=== PATIENT | male | born 1990 | race Caucasian/White ===

== ENCOUNTER 2016-12-14 17:57 | Emergency (ER) | payer BC ==
[~2016-12-14] VITALS: Ht 190.5 cm; Wt 115.0 kg
[~2016-12-14 17:57] MED LIST: GEMF600T PO; OXYC1SOL5 PO; PROT40TA PO; ZOFR4TAB3 SL
[2016-12-14 18:10] VITALS: BP 154/92; PULSE 67; RESP 16; TEMP 98.8; O2SAT 98
[2016-12-14 18:30] LABS: BLOOD, URINE NEG (NEG); GLUCOSE,URINE NEG (NEG); KETONE, URINE NEG (NEG); NITRITE,URINE NEG (NEG)
[2016-12-14 18:48] LABS: URINE COLOR YELLOW (YELLW/STRAW)
[2016-12-14 18:51] LABS: COMMENT (UR) CULT NOT INDICATED; CULTURE IF INDICATED CULT NOT INDICATED; SQUAMOUS EPITHELIAL CELL URINE 0-5 /hpf (0-5); WBC, URINE 0-2 /hpf (0-5)
--- NOTE | 2016-12-14 19:47 | PD ---
HPI Chief Complaint: Flank/Kidney Pain Time Seen by Provider: 19:33 Travel History International Travel<30 days: No Contact w/Intl Traveler<30days: No Traveled to known affect area: No History of Present Illness HPI The patient is a 26-year-old male that complains of left flank pain radiating to the abdomen for about 4 hours. He does have nausea without vomiting. He denies any fever. He denies any history of kidney stones. He has a history of pancreatitis and this feels similar to that pain but this is the first time he has had dizziness. He denies any dysuria, frequency or urgency. The pain is 8/ 10 and sharp and stabbing. The patient's pancreatitis was from gallbladder problems and he states after his cholecystectomy has not had any problems with this. His last drink of alcohol was 3 days ago. He denies any melanotic or bloody stools. 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 PFSH Past Medical History Cancer: No Cardiovascular Problems: No Diminished Hearing: No Endocrine: No Gastrointestinal Disorders: Yes (COLITIS) GERD: Yes Genitourinary: No Immune Disorder: No Neurologic: No Reproductive: No Respiratory: No Immunizations Current: No Pancreatitis: Yes Tetanus Vaccination: < 5 Years Influenza Vaccination: Yes Past Surgical History Cholecystectomy: Yes Other Surgery: Yes (JEUJOSTOMY) Social History Alcohol Use: Yes (OCCASIONAL) Tobacco Use: Yes (CHEW) Substance Use: No Allergies-Medications (Allergen,Severity, Reaction): Coded Allergies: No Known Allergies (Unverified , 12/14/16) Reported Meds & Prescriptions Reported Meds & Active Scripts Active Reported Omeprazole 40 Mg Cap 40 Mg PO DAILY Review of Systems Except as stated in HPI: all other systems reviewed are Neg Physical Exam Narrative GENERAL: The patient is alert, oriented 3 in moderate apparent distress with his left flank pain. His vital signs show blood pressure 154/92 but are otherwise normal. SKIN: Warm and dry. No skin rash is seen. HEAD: Atraumatic. Normocephalic. EYES: Pupils equal and round. No scleral icterus. No injection or drainage. ENT: No nasal bleeding or discharge. Mucous membranes pink and moist. NECK: Trachea midline. No JVD. CARDIOVASCULAR: Regular rate and rhythm. No murmur appreciated. RESPIRATORY: No accessory muscle use. Clear to auscultation. Breath sounds equal bilaterally. GASTROINTESTINAL: Abdomen soft, with minimal tenderness on the left over quadrant and tenderness to percussion in the left flank, nondistended. Hepatic and splenic margins not palpable. No guarding or rebound is present. MUSCULOSKELETAL: No obvious deformities. No clubbing. No cyanosis. No edema. NEUROLOGICAL: Awake and alert. No obvious cranial nerve deficits. Motor grossly within normal limits. Normal speech. PSYCHIATRIC: Appropriate mood and affect; insight and judgment normal. Data Data Last Documented VS Vital Signs Date Time Temp Pulse Resp B/P Pulse Ox O2 Delivery O2 Flow Rate FiO2 12/14/16 20:59 18 12/14/16 20:50 98 Room Air 12/14/16 20:50 59 171/77 12/14/16 18:10 98.8 Orders Urinalysis - C+S If Indicated (12/14/16 18:13) Complete Blood Count With Diff (12/14/16 19:47) Comprehensive Metabolic Panel (12/14/16 19:47) Lipase (12/14/16 19:47) Ct Abd/Pel W Iv Contrast(Rout) (12/14/16 19:47) Iv Access Insert/Monitor (12/14/16 19:47) Ecg Monitoring (12/14/16 19:47) Oximetry (12/14/16 19:47) Ondansetron Inj (Zofran Inj) (12/14/16 20:00) Sodium Chloride 0.9% Flush (Ns Flush) (12/14/16 20:00) Ketorolac Inj (Toradol Inj) (12/14/16 20:00) Sodium Chlor 0.9% 1000 Ml Inj (Ns 1000 M (12/14/16 20:00) Iohexol 350 Inj (Omnipaque 350 Inj) (12/14/16 21:29) Labs Laboratory Tests Test 12/14/16 12/14/16 18:15 19:53 Urine Color YELLOW Urine Turbidity CLEAR Urine pH 6.0 Urine Specific [place] 1.028 Urine Protein NEG mg/dL Urine Glucose (UA) NEG mg/dL Urine Ketones NEG mg/dL Urine Occult Blood NEG Urine Nitrite NEG Urine Bilirubin NEG Urine Leukocyte Esterase NEG Urine WBC 0-2 /hpf Urine Squamous Epithelial 0-5 /hpf Cells Microscopic Urinalysis Comment CULT NOT INDICATED White Blood Count 5.9 TH/MM3 Red Blood Count 4.90 MIL/MM3 Hemoglobin 14.8 GM/DL Hematocrit 43.3 % Mean Corpuscular Volume 88.4 FL Mean Corpuscular Hemoglobin 30.3 PG Mean Corpuscular Hemoglobin 34.3 % Concent Red Cell Distribution Width 11.9 % Platelet Count 231 TH/MM3 Mean Platelet Volume 7.8 FL Neutrophils (%) (Auto) 49.8 % Lymphocytes (%) (Auto) 43.0 % Monocytes (%) (Auto) 5.6 % Eosinophils (%) (Auto) 0.8 % Basophils (%) (Auto) 0.8 % Neutrophils # (Auto) 3.1 TH/MM3 Lymphocytes # (Auto) 2.5 TH/MM3 Monocytes # (Auto) 0.3 TH/MM3 Eosinophils # (Auto) 0.0 TH/MM3 Basophils # (Auto) 0.0 TH/MM3 CBC Comment DIFF FINAL Differential Comment Sodium Level 142 MEQ/L Potassium Level 4.0 MEQ/L Chloride Level 107 MEQ/L Carbon Dioxide Level 25.5 MEQ/L Anion Gap 10 MEQ/L Blood Urea Nitrogen 18 MG/DL Creatinine 1.10 MG/DL Estimat Glomerular Filtration 80 ML/MIN Rate Random Glucose 94 MG/DL Calcium Level 8.9 MG/DL Total Bilirubin 0.6 MG/DL Aspartate Amino Transf 30 U/L (AST/SGOT) Alanine Aminotransferase 43 U/L (ALT/SGPT) Alkaline Phosphatase 75 U/L Total Protein 7.7 GM/DL Albumin 4.2 GM/DL Lipase 66 U/L MDM Medical Decision Making Medical Screen Exam Complete: Yes Emergency Medical Condition: Yes Medical Record Reviewed: Yes Interpretation(s) The CBC is normal. The lipase is normal. The complete metabolic profile is normal except for a GFR of 80. The urinalysis is normal. The CT abdomen/ pelvis with IV contrast shows a small irregular low density collection adjacent to the tail of the pancreas and slight fascial thickening with tiny collection in the left paracolic gutter. This is likely related to his previous episodes of pancreatitis. Differential Diagnosis Urinary stone, pancreatitis, colitis, pyelonephritis, pseudocyst, abdominal abscess Narrative Course The collection of possible fluid/fascial thickening is exactly where the patient 's pain at this. This is the only abnormality seen on the CT scan. The patient 's blood work is entirely normal. The patient will be given Phenergan and Lortab 5 for pain. He will have to follow up with his primary care physician or event specialist next week. At this time I cannot call this an abdominal abscess but if his symptoms persist this area may need to be explored surgically. Also, there is no free air associated with this lesion as would be expected with an abscess. Procedures EKG Prior to Arrival: No EKG Not Completed: EKG Not Medically Necessary Diagnosis Primary Impression: Abdominal pain Additional Instructions: Radiologist was not very specific on what this mass at the end of the tail of pancreas. This may be a pseudocyst or even an abscess. Your blood work does not indicate an abscess. Follow-up with your event specialist next week. Do not drink alcohol or drive on the Phenergan or the Lortab 5. Take a copy of the CT disc to your event specialist. Med/Other Pt SpecificInfo: Prescription(s) given Scripts Hydrocodone-Acetaminophen (Lortab)5-325 Mg Tab1-2 Tab PO Q6H PRN (PAIN) #20 TAB Ref 0 Prov:Kojo Argueta MD 12/14/16 Promethazine (Phenergan)25 Mg Tab25 Mg PO Q6H PRN (Nausea/Vomiting) #30 TAB Ref 0 Prov:Kojo Argueta MD 12/14/16 Disposition: 01 DISCHARGE HOME Condition: Stable Kojo Argueta MD Dec 14, 2016 19:47
[2016-12-14] MEDS ORDERED: SODIUM CHLOR 0.9% 1000 ML INJ 1,000 ML IV SCH (20:00)
[2016-12-14] MEDS ORDERED: SODIUM CHLORIDE 0.9% FLUSH 10 ML FLUSH IV FLUSH PRN (20:00)
[2016-12-14] MEDS ORDERED: KETOROLAC TROMETHAMINE 30 MG/ML (IVP) VIAL IVP ONE (20:00)
[2016-12-14] MEDS ORDERED: ONDANSETRON HCL 4 MG/2 ML VIAL IVP ONE (20:00)
[2016-12-14 20:05] LABS: AUTOMATED NEUTROPHIL # 3.1 TH/MM3 (1.8-7.7); BASOPHIL % 0.8 % (0.0-2.0); EOSINOPHIL % 0.8 % (0.0-4.0); HEMATOCRIT 43.3 % (39.0-51.0); HEMO FLAGS DIFF FINAL; LYMPHOCYTE # 2.5 TH/MM3 (1.0-4.8); MEAN CELL VOLUME 88.4 FL (80.0-100.0); MEAN CORPUSCULAR HEMOGLOBIN 30.3 PG (27.0-34.0); MEAN CORPUSCULAR HGB CONC 34.3 % (32.0-36.0); MONO % 5.6 % (0.0-8.0); NEUT % 49.8 % (16.0-70.0); PLATELET COUNT 231 TH/MM3 (150-450); RED CELL DISTRIBUTION WIDTH 11.9 % (11.6-17.2); WHITE BLOOD COUNT 5.9 TH/MM3 (4.0-11.0)
[2016-12-14 20:20] LABS: CHLORIDE 107 MEQ/L (98-107); SODIUM (NA) 142 MEQ/L (136-145)
[2016-12-14 20:24] LABS: ANION GAP 10 MEQ/L (5-15); BICARBONATE 25.5 MEQ/L (21.0-32.0); BLOOD UREA NITROGEN 18 MG/DL (7-18)
[2016-12-14 20:27] LABS: ALT (GPT) 43 U/L (12-78); AST (GOT) 30 U/L (15-37); GLOMERULAR FILTRATION RATE 80 ML/MIN (>89)
[2016-12-14 20:29] LABS: TOTAL BILIRUBIN ADULT 0.6 MG/DL (0.2-1.0)
[2016-12-14 20:30] LABS: ALKALINE PHOSPHATASE 75 U/L (45-117)
[2016-12-14 20:50] VITALS: BP 171/77; PULSE 59; RESP 18; O2SAT 98
[2016-12-14] MEDS ORDERED: OMEP40CA2 PO (21:27)
[2016-12-14] MEDS ORDERED: IOHEXOL 350 MG/ML 10 ML VIAL (for RAD DIAG) IV ONE (21:29)
--- NOTE | 2016-12-14 21:38 | RADHPO ---
EXAM DATE/TIME: 12/14/2016 20:36 [facility] COMPARISON: No previous studies available for comparison. INDICATIONS : Left flank pain with nausea. IV CONTRAST: 97 cc Omnipaque 350 (iohexol) IV ORAL CONTRAST: No oral contrast ingested. RADIATION DOSE: 20.1 CTDIvol (mGy) MEDICAL HISTORY : Pancreatitis. Gastroesophageal reflux disease. Colitis. SURGICAL HISTORY : Jejunostomy tube. ENCOUNTER: Initial ACUITY: 1 day PAIN SCALE: 7/10 LOCATION: Left flank TECHNIQUE: Volumetric scanning of the abdomen and pelvis was performed. Using automated exposure control and ad justment of the mA and/or kV according to patient size, radiation dose was kept as low as reasonably achievable to obtain optimal diagnostic quality images. FINDINGS: LOWER LUNGS: The visualized lower lungs are clear. LIVER: Homogeneous density without lesion. There is no dilation of the biliary tree. Gallbladder surgically absent.. SPLEEN: Normal size without lesion. PANCREAS: Adjacent to the tail of the pancreas and extending toward the splenic hilum, an irregularly-shaped lo w density collection is present which measures just over 5 cm in maximum oblong dimension. KIDNEYS: Normal in size and shape. There is no mass, stone or hydronephrosis. ADRENAL GLANDS: Within normal limits. VASCULAR: There is no aortic aneurysm. BOWEL/MESENTERY: The stomach, small bowel, and colon demonstrate no acute abnormality. There is no free intraperitone al air or fluid. ABDOMINAL WALL: Within normal limits. RETROPERITONEUM: There is minimal thickening along the anterior pararenal fascia on the left and small low density col lection in the left paracolic gutter adjacent to the inferior aspect of the spleen. This may be relat ed to the above described pancreatic finding. BLADDER: No wall thickening or mass. REPRODUCTIVE: Within normal limits. INGUINAL: There is no lymphadenopathy or hernia. MUSCULOSKELETAL: Within normal limits for patient age. CONCLUSION: Small irregular low density collection adjacent to the tail of the pancreas and slight fascial thicke joellen with tiny collection in the left paracolic gutter. The appearance is nonspecific but may relate to sequela of an episode of pancreatitis. Correlation recommended. These areas are not accessible for sampling. Imaging followup would be recommended to document stability or improvement/clearance. Soto Chavez MD on December 14, 2016 at 21:26 Board Certified Radiologist. This report was verified electronically.
[2016-12-14 21:50] VITALS: BP 167/81; PULSE 54; RESP 18; O2SAT 99
[2016-12-14] MEDS ORDERED: HYDR-3533 PO (21:50)
[2016-12-14] MEDS ORDERED: PROM25TA5 PO (21:50)
== END 2016-12-14 22:14 | disposition home or self-care (01) ==
LOC: PHED 17:57
DX: R10.9 Unspecified abdominal pain (principal); Z72.0 Tobacco use
CPT/HCPCS: 74177; 80053; 81001; 83690; 85025; 96361; 96374; 96375; 99284; J1885; J2405; J7030; Q9967

== ENCOUNTER 2017-04-14 07:30 | Emergency (ER) | payer BC ==
[~2017-04-14] VITALS: Ht 190.5 cm; Wt 113.0 kg
[~2017-04-14 07:30] MED LIST changes: -GEMF600T PO; +HYDR-3533 PO; +OMEP40CA2 PO; -OXYC1SOL5 PO; +PROM25TA5 PO; -PROT40TA PO; -ZOFR4TAB3 SL
[2017-04-14 07:33] VITALS: BP 135/62; PULSE 76; RESP 16; TEMP 98.1; O2SAT 97
[2017-04-14] MEDS ORDERED: SODIUM CHLOR 0.9% 1000 ML INJ 1,000 ML IV SCH (08:06)
[2017-04-14] MEDS ORDERED: ONDANSETRON HCL 4 MG/2 ML VIAL IVP ONE (08:15)
[2017-04-14] MEDS ORDERED: SODIUM CHLORIDE 0.9% FLUSH 10 ML FLUSH IV FLUSH PRN (08:15)
[2017-04-14] MEDS ORDERED: KETOROLAC TROMETHAMINE 30 MG/ML (IVP) VIAL IVP ONE (08:15)
[2017-04-14 08:16] LABS: AUTOMATED NEUTROPHIL # 3.6 TH/MM3 (1.8-7.7); BASOPHIL # 0.1 TH/MM3 (0-0.2); EOSINOPHIL # 0.1 TH/MM3 (0-0.4); HEMATOCRIT 42.1 % (39.0-51.0); HEMO FLAGS DIFF FINAL; LYMPH % 28.7 % (9.0-44.0); LYMPHOCYTE # 1.7 TH/MM3 (1.0-4.8); MEAN CELL VOLUME 88.5 FL (80.0-100.0); MEAN CORPUSCULAR HEMOGLOBIN 29.8 PG (27.0-34.0); MEAN CORPUSCULAR HGB CONC 33.6 % (32.0-36.0); MONO % 6.1 % (0.0-8.0); NEUT % 62.2 % (16.0-70.0); PLATELET COUNT 218 TH/MM3 (150-450); RED BLOOD COUNT 4.76 MIL/MM3 (4.50-5.90); RED CELL DISTRIBUTION WIDTH 11.6 % (11.6-17.2); WHITE BLOOD COUNT 5.9 TH/MM3 (4.0-11.0)
[2017-04-14 08:20] VITALS: RESP 16; O2SAT 97
[2017-04-14 08:21] LABS: BLOOD, URINE NEG (NEG); GLUCOSE,URINE NEG (NEG); KETONE, URINE NEG (NEG); NITRITE,URINE NEG (NEG); PH, URINE 6.5 (5.0-8.5)
[2017-04-14 08:23] LABS: METHOD OF COLLECTION CLEAN CATCH; URINE COLOR YELLOW (YELLW/STRAW)
[2017-04-14 08:24] LABS: CHLORIDE 110 MEQ/L (98-107); SODIUM (NA) 143 MEQ/L (136-145)
[2017-04-14 08:28] LABS: ANION GAP 10 MEQ/L (5-15); APTT (PATIENT) 25.4 SEC (24.3-30.1); BICARBONATE 23.3 MEQ/L (21.0-32.0); BLOOD UREA NITROGEN 17 MG/DL (7-18); CULTURE IF INDICATED CULT NOT INDICATED; PROTHROMBIN TIME - PATIENT 10.9 SEC (9.8-11.6)
[2017-04-14 08:29] LABS: COMMENT (UR) CULT NOT INDICATED; COMMENT2 (UR) MUCOUS PRESENT; SQUAMOUS EPITHELIAL CELL URINE 0-5 /hpf (0-5)
[2017-04-14 08:30] LABS: POTASSIUM 4.4 MEQ/L (3.5-5.1)
[2017-04-14 08:31] LABS: ALT (GPT) 72 U/L (12-78); AST (GOT) 45 U/L (15-37); GLOMERULAR FILTRATION RATE 72 ML/MIN (>89)
[2017-04-14 08:34] LABS: ALKALINE PHOSPHATASE 71 U/L (45-117)
--- NOTE | 2017-04-14 08:35 | PD ---
HPI Chief Complaint: Abdominal Pain Time Seen by Provider: 08:21 Travel History International Travel<30 days: No Contact w/Intl Traveler<30days: No Traveled to known affect area: No History of Present Illness HPI 26 year old male with a history of gallstone pancreatitis 1 year ago presents with left upper quadrant abdominal pain for one day. The pain is sharp in quality, constant, and radiates to the back. Associated symptoms include nausea , vomiting, and diarrhea x 1 day. He denies any fever, chills, hematemesis, hematuria, hematochezia. He went on a cruise to the [facility] a week ago and did have a four hour episode of vomiting and diarrhea on the boat but symptoms resolved. He had a cholecystectomy and J-tube placement 1 year ago. He tried taking aspirin and advil without relief. No aggravating factors. He takes omeprazole for GERD. PFSH Past Medical History Hx Anticoagulant Therapy: No Cancer: No Cardiovascular Problems: No Diabetes: No Diminished Hearing: No Endocrine: No Gastrointestinal Disorders: Yes (COLITIS) GERD: Yes Genitourinary: No Immune Disorder: No Neurologic: No Reproductive: No Respiratory: No Immunizations Current: Yes Pancreatitis: Yes Tetanus Vaccination: < 5 Years Influenza Vaccination: Yes Past Surgical History Cholecystectomy: Yes Other Surgery: Yes (JEUJOSTOMY) Social History Alcohol Use: Yes (OCCASIONAL) Tobacco Use: Yes (CHEW) Substance Use: No Allergies-Medications (Allergen,Severity, Reaction): Coded Allergies: No Known Allergies (Unverified , 04/14/17) Reported Meds & Prescriptions Reported Meds & Active Scripts Active Bentyl (Dicyclomine HCl) 10 Mg Cap 10 Mg PO QID PRN Flagyl (Metronidazole) 500 Mg Tab 500 Mg PO BID 7 Days Cipro (Ciprofloxacin HCl) 500 Mg Tab 500 Mg PO BID 7 Days Reported Omeprazole 40 Mg Cap 40 Mg PO DAILY Review of Systems Except as stated in HPI: all other systems reviewed are Neg General / Constitutional: No: Fever, Chills Cardiovascular: No: Chest Pain or Discomfort Gastrointestinal: Positive: Nausea, Vomiting, Diarrhea, Abdominal Pain, No: Hematemesis, Hematochezia, Constipation Genitourinary: No: Urgency, Frequency, Dysuria, Nocturia, Hematuria Skin: No Rash Physical Exam Narrative GENERAL: Well developed and well nourished. Patient appears uncomfortable in bed. SKIN: Warm and dry. HEAD: Atraumatic. Normocephalic. EYES: Pupils equal and round. No scleral icterus. No injection or drainage. ENT: No nasal bleeding or discharge. Mucous membranes pink and moist. NECK: Trachea midline. No JVD. CARDIOVASCULAR: Regular rate and rhythm. RESPIRATORY: No accessory muscle use. Clear to auscultation. Breath sounds equal bilaterally. GASTROINTESTINAL: Abdomen soft, nondistended. Minimal LUQ tenderness. Hepatic and splenic margins not palpable. MUSCULOSKELETAL: Extremities without clubbing, cyanosis, or edema. No obvious deformities. NEUROLOGICAL: Awake and alert. No obvious cranial nerve deficits. Motor grossly within normal limits. Five out of 5 muscle strength in the arms and legs. Normal speech. PSYCHIATRIC: Appropriate mood and affect; insight and judgment normal. Data Data Last Documented VS Vital Signs Date Time Temp Pulse Resp B/P Pulse Ox O2 Delivery O2 Flow Rate FiO2 04/14/17 09:52 16 04/14/17 09:25 62 121/64 98 Room Air 04/14/17 07:33 98.1 Orders Urinalysis - C+S If Indicated (04/14/17 07:32) Complete Blood Count With Diff (04/14/17 08:06) Comprehensive Metabolic Panel (04/14/17 08:06) Lipase (04/14/17 08:06) Prothrombin Time / Inr (Pt) (04/14/17 08:06) Act Partial Throm Time (Ptt) (04/14/17 08:06) Iv Access Insert/Monitor (04/14/17 08:06) Ecg Monitoring (04/14/17 08:06) Oximetry (04/14/17 08:06) Ondansetron Inj (Zofran Inj) (04/14/17 08:15) Sodium Chlor 0.9% 1000 Ml Inj (Ns 1000 M (04/14/17 08:06) Sodium Chloride 0.9% Flush (Ns Flush) (04/14/17 08:15) Ketorolac Inj (Toradol Inj) (04/14/17 08:15) Oxycodone-Acetamin 5-325 Mg (Percocet (04/14/17 09:00) Labs Laboratory Tests Test 04/14/17 07:55 White Blood Count 5.9 TH/MM3 Red Blood Count 4.76 MIL/MM3 Hemoglobin 14.2 GM/DL Hematocrit 42.1 % Mean Corpuscular Volume 88.5 FL Mean Corpuscular Hemoglobin 29.8 PG Mean Corpuscular Hemoglobin 33.6 % Concent Red Cell Distribution Width 11.6 % Platelet Count 218 TH/MM3 Mean Platelet Volume 8.1 FL Neutrophils (%) (Auto) 62.2 % Lymphocytes (%) (Auto) 28.7 % Monocytes (%) (Auto) 6.1 % Eosinophils (%) (Auto) 1.0 % Basophils (%) (Auto) 2.0 % Neutrophils # (Auto) 3.6 TH/MM3 Lymphocytes # (Auto) 1.7 TH/MM3 Monocytes # (Auto) 0.4 TH/MM3 Eosinophils # (Auto) 0.1 TH/MM3 Basophils # (Auto) 0.1 TH/MM3 CBC Comment DIFF FINAL Differential Comment Prothrombin Time 10.9 SEC Prothromb Time International 1.0 RATIO Ratio Activated Partial 25.4 SEC Thromboplast Time Urine Collection Type CLEAN CATCH Urine Color YELLOW Urine Turbidity SLIGHT Urine pH 6.5 Urine Specific [place] 1.029 Urine Protein TRACE mg/dL Urine Glucose (UA) NEG mg/dL Urine Ketones NEG mg/dL Urine Occult Blood NEG Urine Nitrite NEG Urine Bilirubin NEG Urine Leukocyte Esterase NEG Urine Squamous Epithelial 0-5 /hpf Cells Urine Amorphous Sediment FEW Microscopic Urinalysis Comment CULT NOT INDICATED Urine Collection Time 0755 Sodium Level 143 MEQ/L Potassium Level 4.4 MEQ/L Chloride Level 110 MEQ/L Carbon Dioxide Level 23.3 MEQ/L Anion Gap 10 MEQ/L Blood Urea Nitrogen 17 MG/DL Creatinine 1.20 MG/DL Estimat Glomerular Filtration 72 ML/MIN Rate Random Glucose 99 MG/DL Calcium Level 8.7 MG/DL Total Bilirubin 1.0 MG/DL Aspartate Amino Transf 45 U/L (AST/SGOT) Alanine Aminotransferase 72 U/L (ALT/SGPT) Alkaline Phosphatase 71 U/L Total Protein 7.6 GM/DL Albumin 4.2 GM/DL Lipase 78 U/L [facility] Medical Decision Making Medical Screen Exam Complete: Yes Emergency Medical Condition: Yes Differential Diagnosis Pancreatitis Gastroenteritis Nephrolithiasis Allergies diarrhea Electrolyte abnormality acute kidney injury mild dehydration. Narrative Course Normal LFTs, normal lipase, normal electrolytes, creatinine 1.2, coags and urine unremarkable. Patient given Zofran and Toradol, still having some discomfort after labs resulted in patient revisited. His abdomen is benign. He requests something more for pain medicine his father has arrived. He was given oxycodone and was feeling better after that. Discussed my impression could be traveler's diarrhea given recent travel to [facility]. No indication for CAT scan time, I does have a history of C. difficile diarrhea according to his chart. We'll place and appear Cipro and Flagyl. Discussed push by mouth fluids avoid Imodium and return to ED criteria for follow-up with primary care physician. He is stable for discharge. Diagnosis Primary Impression: DIARRHEA, UNSPECIFIED Additional Impression: Abdominal pain Patient Instructions: Gastroenteritis (DC), General Instructions Med/Other Pt SpecificInfo: Prescription(s) given Scripts Dicyclomine (Bentyl)10 Mg Cap10 Mg PO QID PRN (ABDOMINAL CRAMPING) #20 CAP Ref 0 Prov:Octavio Cardoza MD 04/14/17 Metronidazole (Flagyl)500 Mg [id number] Mg PO BID 7 Days Ref 0 Prov:Octavio Cardoza MD 04/14/17 Ciprofloxacin (Cipro)500 Mg [id number] Mg PO BID 7 Days Ref 0 Prov:Octavio Cardoza MD 04/14/17 Disposition: 01 DISCHARGE HOME Condition: Stable Octavio Cardoza MD Apr 14, 2017 08:35
[2017-04-14 08:55] VITALS: BP 134/60; PULSE 77; RESP 16; O2SAT 98
[2017-04-14] MEDS ORDERED: oxyCODONE/ACETAMINOPHEN 5 MG/325 MG TAB PO ONE (09:00)
[2017-04-14 09:25] VITALS: BP 121/64; PULSE 62; RESP 16; O2SAT 98
[2017-04-14] MEDS ORDERED: CIPR-9 PO (09:30)
[2017-04-14] MEDS ORDERED: DICY10 PO (09:30)
[2017-04-14] MEDS ORDERED: METR-1 PO (09:30)
[2017-04-14 09:52] VITALS: RESP 16
== END 2017-04-14 09:55 | disposition home or self-care (01) ==
LOC: PHED 07:30
DX: R19.7 Diarrhea, unspecified (principal); R10.12 Left upper quadrant pain; R11.2 Nausea with vomiting, unspecified; Z72.0 Tobacco use; Z87.19 Personal history of other diseases of the digestive system
CPT/HCPCS: 80053; 81001; 83690; 85025; 85610; 85730; 96361; 96374; 96375; 99284; J1885; J2405; J7030